=== PATIENT | male | born 1950 | race Caucasian/White ===

== ENCOUNTER 2016-11-15 10:04 | Inpatient (IN) ==
[2016-11-15] MEDS ORDERED: SODIUM CHLORIDE 0.9% 500 ML IV STA (10:17)
[2016-11-15] MEDS ORDERED: LEVOFLOXACIN 750 MG TABLET PO STA (10:17)
[2016-11-15 11:08] LABS: Basophils # 0.1 10*3/uL (0.0-0.2); Basophils % 0.6 % (0.0-0.8); Eosinophils # 0.2 10*3/uL (0.0-0.87); Eosinophils % 1.8 % (0.00-10.9); Hematocrit 33.9 VOL% (42.0-52.0); Hemoglobin 11.8 GM/DL (14.0-18.0); Immature Granulocytes % 0.5 %; Immature Granulocytes Absolute 0.05 #; Lymphocytes # 1.6 10*3/uL (1.4-4.0); Lymphocytes % 16.4 % (21.2-54.2); Mean Corpuscular HGB Conc 34.8 GM/DL (32-36); Mean Corpuscular Hemoglobin 35 PG (27-34); Mean Corpuscular Volume 101.8 FL (87-102); Mean Platelet Volume 10.4 FL (9.6-12.0); Monocytes # 1.3 10*3/uL (0.11-0.8); Monocytes % 12.9 % (1.7-12.7); Neutrophils # 6.8 10*3/uL (1.4-7.4); Neutrophils % 67.8 % (38.7-73.9); Platelet Count 177 T/CUMM (130-400); Red Blood Count 3.33 MC/CUMM (3.8-5.5); Red Cell Distribution Width 12.7 % (9.3-17.3)
[2016-11-15] MEDS ORDERED: LEVOFLOXACIN INJ 750 MG in PREMIX 1 EACH IV STA (11:15)
[2016-11-15] MEDS ORDERED: LEVOFLOXACIN INJ 150 ML IV ONE (11:15)
[2016-11-15 11:32] LABS: Calcium 7.8 MG/DL (8.5-10.1)
--- NOTE | 2016-11-15 11:32 | Order Completion Report ---
See report scanned to EMR
[2016-11-15 12:19] LABS: Apearance,Urine CLEAR (Clear); Bilirubin,Urine Negative (Negative); Blood, Urine Negative (Negative); Glucose,Urine (UA) Negative (Negative); Ketones,Urine Negative (Negative); Mucus,Urine Occasional /LPF (Occasional); Nitrite,Urine Negative (Negative); Protein,Urine Negative; RBC,Urine <1 /HPF (0-4); Squamous Epithelial Cell,Urine Occasional /HPF (0-10); Urine Color Yellow (Yellow); Urine Specific Gravity 1.013 (1.001-1.035); Urine Urobilinogen < 2.0 EU/DL (0.2-1.0)
--- NOTE | 2016-11-15 12:19 | XRay Report ---
2 view chest Indication: Shortness of breath Comparison: July 31, 2015 Findings: Cardiomediastinal contours are within normal limits post coronary artery bypass graft with sternotomy wires and midline. Lungs are clear bilaterally. . No acute osseous abnormalities. Visualized upper abdomen demonstrates no acute pathology. Impression: No acute cardiopulmonary findings PROCEDURE INTERPRETED AT [facility] DEPARTMENT OF RADIOLOGY Final Report Signed by: Elvira Tobar MD
--- NOTE | 2016-11-15 12:49 | Emergency Department Note ---
Javier Clarke Jessica J, am scribing for, and in the presence of, Kayden Chávez MD 10:20. Kyler Clarke Doug C, MD, personally performed the services described in this documentation, ascribed by Neetu Herrera in my presence, and it is both accurate and complete 249 . Arrival - Arrival Chief Complaint: Upper Respiratory Stated Complaint: chest pain, cough, congestion ED Nursing Triage Note: Pt c/o fever, cough, congestion, SOB, and chest pain x 4 days. Pt was given ABX in the clinic but is not better. Mode of Arrival: Ambulatory Limitations: No Limitations Source: Patient, RN Notes Reviewed - History of Present Illness HPI Narrative: Patient 66-year-old white male presents emergency room complaining of fever, cough and shortness of breath started 5 days ago. Patient states she has not had any sputum production. He is having some pleuritic right-sided chest pain is worse with deep breath and cough. He has not had any chills or rigors associated with this. He denies nausea, vomiting or any abdominal discomfort. Patient states he has noticed that he is short of breath when he exerts himself. He denies any hemoptysis and is not having any abdominal discomfort. Onset (ago): day(s) Consistency: constant Allergies/Adverse Reactions: Allergies Allergy/AdvReac Type Severity Reaction Status Date / Time No Known Allergies Allergy Verified 07/27/15 11:57 Home Medications: Home Medications Medication Instructions Recorded Confirmed Type Allopurinol 300 mg PO DAILY 07/27/15 07/29/15 History Enalapril Maleate 10 mg PO DAILY 07/27/15 07/29/15 History Ferrous Sulfate 325 mg PO BID 07/27/15 07/29/15 History Furosemide 20 mg PO QAM 07/27/15 07/29/15 History NIFEdipine [Nifedipine ER] 60 mg PO DAILY 07/27/15 07/29/15 History Rosuvastatin Calcium [Crestor] 5 mg PO DAILY 07/27/15 07/29/15 History Aspirin Chew Tab 81 mg PO DAILY tablet 08/01/15 Rx Fexofenadine [Caroline] 180 mg PO DAILY #30 tablet 08/01/15 Rx Magnesium Chloride [Slow Mag] 64 mg PO BID #60 tablet 08/01/15 Rx Pantoprazole Tab [Protonix Tab] 40 mg PO DAILY #30 tablet 08/01/15 Rx Potassium Chloride Cap/Tab [K Dur] 10 meq PO DAILY #30 tablet 08/01/15 Rx Amlodipine Besylate [Amlodipine 11/15/16 History Besylate] Carvedilol [Carvedilol] BID 11/15/16 11/15/16 History NIFEdipine [Nifedipine ER] 30 mg PO 11/15/16 History Review of System - Review of System 12 point system: reviewed and no additional remarkable complaints except as stated - Review of System Constitutional: Present: fever. Absent: chills, diaphoresis Eyes: Absent: vision change Head/Ears/Nose/Throat: Absent: earache Respiratory: Present: cough (congested, nonproductive cough), other (SOB). Absent: respiratory distress Cardiovascular: Absent: chest pain Gastrointestinal: Absent: abdominal pain, nausea, vomiting, diarrhea Genitourinary male: Absent: dysuria Musculoskeletal: Absent: arm pain, arthralgia, back pain, leg pain Skin: Absent: rash Neurological: Absent: headache, vertigo Psychiatric: Absent: anxiety Hematological/Lymphatic: Absent: easy bleeding, easy bruising Medical,Surgical,& Family Hx - Medical History Cardio: History of: CAD, Hypertension, [place] HEENT: History of: HEENT Problems (hard of hearing) Endocrine: History of: Dyslipidemia Rheumatology: History of;: Gout, Rheumatoid Arthritis Respiratory: History of: Obstructive Sleep Apnea Gastrointestinal: History of: GI Problems (diarrhea, vomiting) - Surgical History Cardiac Surgeries: Sugical HX of: Cardiac Catheterization (CABG 2009), Cardiac Surgery (Bypass surgery July 2009) - Family History Family History: Reports;: Family Cancer (daughter (caroital melanoma)), Family Diabetes, Family Heart Disease (aunt, grandaddy), Family Hypertension (daughters , mother), Family Stroke (mother) Denies;: Family Anesthesia Reaction, Family Psychiatric Problems - Social History Smoking Status: Never smoker Exam Vital Signs: Vital Signs Temperature 99.6 F 11/15/16 10:30 Pulse Rate 78 11/15/16 10:30 Respiratory Rate 22 11/15/16 10:30 Blood Pressure 131/79 11/15/16 10:30 O2 Sat by Pulse Oximetry 96 11/15/16 10:33 - General General appearance: alert, in no apparent distress - Head Head exam: Present: atraumatic, normocephalic - Eye Eye exam: Present: normal appearance, PERRL, EOMI - ENT ENT exam: Present: normal exam, normal oropharynx, mucous membranes moist. Absent: mucous membranes dry - Neck Neck exam: Present: normal inspection, full ROM, trachea midline - Chest Chest inspection: Present: normal inspection, symmetric chest wall rise - Respiratory Respiratory exam: Present: rales (right posterior base ). Absent: respiratory distress - Cardiovascular Cardiovascular exam: Present: regular rate, normal rhythm, normal heart sounds - Abdominal Exam Abdominal exam: Present: soft, normal bowel sounds. Absent: distention, tenderness - Extremities Exam Extremities exam: Present: normal inspection, full ROM. Absent: tenderness - Back Exam Back exam: Present: normal inspection, full ROM - Neurological Exam Neurological exam: Present: alert, oriented X3, CN II-XII intact. Absent: motor sensory deficit - Psychiatric Psychiatric exam: Present: normal affect, normal mood - Skin Skin exam: Present: warm, dry, intact, normal color Course Course Narrative: Patient's clinical presentation, laboratory and radiograph findings were discussed with Dr. Nicholas. Patient will be admitted 23 hour observation and lung scan performed. Results - Labs CBC & BMP: 11/15/16 10:56 11/15/16 10:56 Lab Results: I have reviewed the patients labs Labs: Microbiology 11/15/16 10:17 Nasal Aspirate Influenza Types A,B Antigen (RACHAEL) - Final Negative for Influenza A Ag Negative for Influenza B Ag Laboratory Tests 11/15/16 11/15/16 11/15/16 10:56 10:56 10:56 WBC 10.0 RBC 3.33 L Hgb 11.8 L Hct 33.9 L MCH 35 H Plt Count 177 Lymph % (Auto) 16.4 L [place] % (Auto) 12.9 H [place] # (Auto) 1.3 H D-Dimer, Quantitative 0.8 Sodium 136 Potassium 4.0 Chloride 99 Carbon Dioxide 28 BUN 31 H Creatinine 1.70 H Glucose 109 H Calcium 7.8 L Laboratory Tests 11/15/16 11/15/16 10:56 12:01 B-Natriuretic Peptide 336 H Urine pH 7.0 Ur Specific [place] 1.013 Urine Urobilinogen < 2.0 H Urine RBC <1 - EKG EKG results: interpreted by [facility] EKG shows: atrial fibrillation (Controlled rate) - Diagnostic Findings Procedure: Chest x-ray: report reviewed by me (No acute cardiopulmonary findings ) Disposition Clinical Impression: Pleuritic chest pain, Atrial fibrillation Case discussed with: patient Disposition: Still a Patient Condition: Stable Time of Disposition: 12:49
[2016-11-15] MEDS ORDERED: MORPHINE 2 MG/1 ML SYRINGE IV PRN (13:04)
[2016-11-15] MEDS ORDERED: NALOXONE 0.4 MG/ML VIAL IV PRN (13:04)
[2016-11-15] MEDS ORDERED: ONDANSETRON 4 MG/2 ML VIAL IV PRN (13:04)
[2016-11-15] MEDS ORDERED: NITROGLYCERIN SL 0.4 MG TABLET SL PRN (13:07)
[2016-11-15] MEDS: SODIUM CHLORIDE 0.45% 1,000 ML IV SCH (15:48)
--- NOTE | 2016-11-15 16:04 | Ultrasound Report ---
Exam: US venous doppler LE BI Indication: Pain and swelling Technique: Tobar scale Doppler with color flow with spectral broadening was performed in routine fashion of the lower extremities per routine protocol Findings: The right common femoral, superficial femoral, popliteal and proximal saphenous saphenous veins are patent with normal waveform phasicity and augmentation as well as complete vessel compressibility. There is no evidence of popliteal or Mojica's cyst. The left common femoral, superficial femoral, popliteal and proximal saphenous saphenous veins are patent with normal waveform phasicity and augmentation as well as complete vessel compressibility. There is no evidence of popliteal or Mojica's cyst. Impression: No evidence of deep venous thrombosis within bilateral lower extremity Ultrasound images were captured and stored. PROCEDURE INTERPRETED AT [facility] DEPARTMENT OF RADIOLOGY Final Report Signed by: Elvira Tobar MD
[2016-11-15] MEDS: ACETAMINOPHEN 325 MG TABLET PO PRN (18:18)
[2016-11-15] MEDS: HYDROcodone/CHLORPHENIRAMINE ER 5 ML UDCUP PO PRN (18:18)
--- NOTE | 2016-11-15 20:33 | Nuclear Medicine Report ---
VQ scan November 15, 2016 Indication: Difficulty breathing and right-sided chest pain Comparison images not available Technique: Planar imaging of the chest was performed after administration of aerosol 40 mCi of technetium 99 DTPA and 5 mCi of technetium 99 MAA intravenously Findings: There is question of single nonsegmental perfusion mismatch involving the lateral segment of the right middle lobe Impression Low probability scan for pulmonary embolism by PIOPED criteria. If strong clinical concern, CTA is the gold standard for evaluating for pulmonary embolism. PROCEDURE INTERPRETED AT [facility] DEPARTMENT OF RADIOLOGY Final Report Signed by: Elvira Tobar MD
[2016-11-15] MEDS: APIXABAN 5 MG TABLET PO SCH (21:34)
[2016-11-15] MEDS: FERROUS SULFATE 325 MG TABLET PO SCH (21:34)
[2016-11-15] MEDS: DOCUSATE SODIUM 100 MG CAPSULE PO SCH (21:34)
[2016-11-15] MEDS: MAGNESIUM CHLORIDE 64 MG TABLET PO SCH (21:34)
[2016-11-15] MEDS: METOPROLOL TARTRATE 25 MG TABLET PO SCH (21:34)
[2016-11-16] MEDS: SODIUM CHLORIDE 0.45% 1,000 ML IV SCH ×3 (01:20→22:02)
[2016-11-16 06:02] LABS: Calcium 7.9 MG/DL (8.5-10.1); Magnesium 2.2 MG/DL (1.8-2.4); Osmolality,Calculated 275.1 MOS/KG (273-304); Potassium 4.5 MMOL/L (3.5-5.1)
--- NOTE | 2016-11-16 06:43 | Order Completion Report ---
See report scanned to EMR
--- NOTE | 2016-11-16 07:35 | Family Practice History&Phys ---
Assessment and Plan (1) Pleuritic chest pain Status: Acute Assessment and plan: 11/16/2016: Lung scan and venous Dopplers reveal no evidence of DVT or PE. Patient certainly has bronchitis. Current Visit: Yes (2) Atrial fibrillation Status: Acute Assessment and plan: 11/16/2016: Patient is in atrial fibrillation with controlled rate. Cardiology will see him today and he can probably go home if they agree. Current Visit: Yes History of Present Illness Chief complaint: Chest pain History of present illness: Mr. Espinoza is a 66 year old male Patient is a 66-year-old male who presented the emergency room complaining of chest pain and shortness of breath. The pain was pleuritic in character and he had slightly elevated d-dimer. Patient states she has had a productive cough but no hemoptysis. There was concern that he could have pulmonary emboli. He was also noted that he was in atrial fibrillation with a controlled rate. He has no history of atrial fibrillation. Patient was admitted to my services and started on Eliquis. His renal function was marginal and a lung scan and venous Dopplers of the lower extremities were ordered which revealed no evidence of DVT or PE. Patient is still complaining of some chest pain and cough this morning. Cardiac isoenzymes were negative in the emergency room. Patient continues to be in atrial fibrillation. He denies any fever or chills. He was started on IV Levaquin in the emergency room and this will be continued. Cardiology has been consulted and he is a regular patient of Dr. Bridges. Patient does have a history of obstructive sleep apnea and uses his CPAP faithfully. Home Medications Medication Instructions Recorded Confirmed Type Allopurinol 300 mg PO QAM 07/27/15 11/15/16 History Enalapril Maleate 10 mg PO QAM 07/27/15 11/15/16 History Ferrous Sulfate 325 mg PO BID 07/27/15 11/15/16 History Furosemide 20 mg PO QAM 07/27/15 11/15/16 History Magnesium Chloride [Slow Mag] 64 mg PO BID #60 tablet 08/01/15 11/15/16 Rx Amlodipine Besylate [Amlodipine 5 mg PO QAM 11/15/16 11/15/16 History Besylate] Aspirin Chew Tab 81 mg PO QAM 11/15/16 11/15/16 History Atorvastatin [Lipitor] 5 mg PO MOWEFR 11/15/16 11/15/16 History Azithromycin [Azithromycin Z Pack] 250 tablet PO DAILY 11/15/16 11/15/16 History Carvedilol [Carvedilol] 3.125 mg PO BID 11/15/16 11/15/16 History Cetirizine Tab [ZyrTEC Tab] 10 mg PO DAILY 11/15/16 11/15/16 History NIFEdipine [Nifedipine ER] 30 mg PO QAM 11/15/16 11/15/16 History Omeprazole [Prilosec] 20 mg PO QAM 11/15/16 11/15/16 History Allergies Allergy/AdvReac Type Severity Reaction Status Date / Time No Known Allergies Allergy Verified 07/27/15 11:57 - Constitutional Constitutional: Present: chills, fever(s), weakness - EENT Eyes: Absent: blurry vision, loss of vision Ears: Absent: decreased hearing, ear pain Nose, mouth and throat: Present: nasal congestion. Absent: hoarseness, sinus pressure, sore throat - Cardiovascular Cardiovascular: Present: chest pain at rest, dyspnea, lightheadedness. Absent: diaphoresis, palpitations, PND - Respiratory Respiratory: Present: as per HPI, cough, dyspnea. Absent: wheezing - Gastrointestinal Gastrointestinal: Absent: abdominal pain, diarrhea, dyspepsia, dysphagia, nausea , vomiting - Genitourinary Genitourinary: Absent: dysuria, hematuria, nocturia - Musculoskeletal Musculoskeletal: Absent: back pain, joint swelling - Neurological Neurological: Absent: confusion, convulsions, focal weakness, numbness, paresthesias - Psychiatric Psychiatric: Absent: anxiety, confusion - Endocrine Endocrine: Absent: fatigue, polydipsia, polyphagia - Hematologic/Lymphatic Hematologic/Lymphatic: Absent: easy bleeding, easy bruising Medical,Surgical,& Family Hx - Medical History Cardio: History of: Cardiac Dysrhythmia, CAD, Hypertension, [place] HEENT: History of: HEENT Problems (hard of hearing) Endocrine: History of: Dyslipidemia Rheumatology: History of;: Gout, Rheumatoid Arthritis Respiratory: History of: Obstructive Sleep Apnea Gastrointestinal: History of: Diverticulitis/ Diverticulosis, GERD, Ulcerative Colitis, GI Problems (diarrhea, vomiting) - Surgical History Cardiac Surgeries: Sugical HX of: Cardiac Catheterization, Cardiac Surgery ( Bypass surgery July 2009) - Family History Family History: Reports;: Family Cancer (daughter (caroital melanoma)), Family Diabetes (AUNT), Family Heart Disease (aunt, grandaddy, BROTHER, SISTER), Family Hypertension (daughters, mother), Family Stroke (mother) Denies;: Family Anesthesia Reaction, Family Psychiatric Problems - Social History Smoking Status: Never smoker Frequency of Alcohol Use: Rarely Type of Drug Use: None Exam - Constitutional Vitals: Period Temp Pulse Resp BP Sys/[place] Pulse Ox Last 24 Hr 96.8 F-100.6 F 72-84 16-22 114-150/72-85 90-96 Exam: General: Objective patient is a well-developed white male in no acute distress. He is able give an excellent history. HEENT: Pupils equal and reactive to light. Patent nares and airway Neck: No meningismus, adenopathy, thyromegaly. There are no auscultated carotid bruits. Cardiovascular: Irregularly irregular rhythm. No murmurs or gallops. Patient's in atrial fibrillation on the monitor. Chest: Patient is noted to have scattered rhonchi throughout all lung espinoza. Abdomen: Soft nontender to palpation No masses, rebound, guarding or tenderness. Neuro: Cranial nerves intact and DTRs and strength symmetric in all extremities. Dermatologic: No evidence of abnormal lesions or masses. Musculoskeletal: There is no joint swelling or tenderness or deformity. Extremities: There is no calf swelling or tenderness. Results - Labs CBC & BMP: 11/15/16 10:56 11/16/16 04:47 Lab Results: I have reviewed the past 24 hour labs - EKG EKG shows: atrial fibrillation (With controlled rate at 72 bpm) - Diagnostic Findings Procedure: Chest x-ray: report reviewed by me (No acute abnormality seen. Repeat chest x-ray has been ordered)
[2016-11-16 08:38] LABS: Troponin I Only 0.018 NG/ML (0.00-0.045)
--- NOTE | 2016-11-16 08:53 | XRay Report ---
Chest, 2 views History is acute bronchitis Comparison 11/15/2016 The heart is enlarged with prior median sternotomy. No confluent infiltrates are seen Impression: Cardiomegaly without acute infiltrates seen PROCEDURE INTERPRETED AT [facility] DEPARTMENT OF RADIOLOGY Final Report Signed by: Dr. Lara Hudson
[2016-11-16] MEDS: LEVOFLOXACIN 500 MG TABLET PO SCH (09:32)
[2016-11-16] MEDS: DOCUSATE SODIUM 100 MG CAPSULE PO SCH ×2 (09:33→21:50)
[2016-11-16] MEDS: ROSUVASTATIN 10 MG TABLET PO SCH (09:34)
[2016-11-16] MEDS: FERROUS SULFATE 325 MG TABLET PO SCH ×2 (09:35→21:51)
[2016-11-16] MEDS: APIXABAN 5 MG TABLET PO SCH ×2 (09:35→21:51)
[2016-11-16] MEDS: FUROSEMIDE 20 MG TABLET PO SCH (09:36)
[2016-11-16] MEDS: METOPROLOL TARTRATE 25 MG TABLET PO SCH ×2 (09:37→21:51)
[2016-11-16] MEDS: PANTOPRAZOLE 40 MG TABLET PO SCH (09:38)
[2016-11-16] MEDS: MAGNESIUM CHLORIDE 64 MG TABLET PO SCH ×2 (09:39→21:51)
[2016-11-16] MEDS: ENALAPRIL 10 MG TABLET PO SCH (09:40)
[2016-11-16] MEDS: ALLOPURINOL 300 MG TABLET PO SCH (09:40)
[2016-11-16] MEDS: HYDROcodone/CHLORPHENIRAMINE ER 5 ML UDCUP PO PRN ×2 (10:14→21:53)
--- NOTE | 2016-11-16 10:49 | Cardiology Consult Note ---
Assessment and Plan - Time spent with patient Time spent with patient: Greater than 30 minutes (due to assessment, plan, and documentation) (1) Atrial fibrillation Status: Acute Assessment and plan: See plan of care listed below. Current Visit: Yes Qualifiers: Atrial fibrillation type: paroxysmal Qualified Code(s): I48.0 - Paroxysmal atrial fibrillation (2) Acute bronchitis Status: Acute Assessment and plan: See plan of care listed below. Current Visit: Yes (3) Bradycardia Status: Chronic Assessment and plan: See plan of care listed below. Current Visit: No (4) Atherosclerotic cardiovascular disease Status: Chronic Assessment and plan: See plan of care listed below. Current Visit: No (5) Iron deficiency anemia Status: Chronic Assessment and plan: See plan of care listed below. Current Visit: Yes (6) Hypertension Status: Chronic Assessment and plan: See plan of care listed below. Current Visit: Yes (7) Hypercholesterolemia Status: Chronic Assessment and plan: See plan of care listed below. Current Visit: No (8) Obstructive sleep apnea Status: Chronic Assessment and plan: See plan of care listed below. 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 Chávez Mr. Espinoza is a 66 y/o WM who has a history of atrial flutter, bradycardia, coronary artery disease, iron deficiency anemia, hypertension, hyperlipidemia, gout, obstructive sleep apnea (compliant with CPAP), GERD, chronic renal insufficiency. He is status post coronary bypass grafting 3 in 2009. Following his bypass surgery, he had some colonic bleeding and has since not been a candidate for anticoagulation. I've attempted to review his old records, but am unable to access these. Mr. Espinoza presented to the emergency room yesterday complaining of chest pain shortness of breath. His pain was pleuritic in nature and he was also noted to have an elevated d-dimer. His lung scan and venous Dopplers revealed no evidence of DVT or PE. Patient's is at the bedside reports that he has had congestion for the past 2 weeks which has progressively worsened in the past week he began running a fever. He has had a productive cough but no hemoptysis. Patient is a poor historian but his is at the bedside and helps with the history. The patient does not recall having a history of irregular heartbeat but the patient's notes that he did have trouble following a bout of salmonella several years ago. According to his clinic records, the patient has a history of atrial flutter but due to history of iron deficiency anemia and colonic bleeding 2009, he was determined to not be a candidate for chronic anticoagulation and has been placed on aspirin for stroke prevention. Upon arrival, he was noted to have WBC 10.0, neutrophil count 67.8. H&H 11.8 & 33.9. PLT count 177. Sodium 136, potassium 4.0, creatinine 1.7, osmolality 279, BNP 336, TSH 2.58, troponin negative. EKG showed atrial fibrillation with rates in the 70's. We will continue to monitor. Dr. Bridges to follow with further plan and addendum. IMPRESSION/PLAN: - ATRIAL FIBRILLATION/FLUTTER: Suspect paroxysmal, but unsure if this is chronic. Patient has been started on Metoprolol 25mg PO BID as well as Eliquis 5mg po BID. With his history of GI bleed, he may require stroke prevention with aspirin only. Will discuss with Dr. Bridges and await additional recommendations. We will continue to monitor CBC and for any signs of bleeding. If he continues on anticoagulation, he will need to have his blood counts monitored as an outpatient. - ACUTE BRONCHITIS: Patient has been started on Levaquin. He is audibly wheezing upon exam today. Will start him on some PRN breathing treatments. If his heart rate becomes elevated, we can use additional beta blockers to help keep his heart rate controlled. - HISTORY OF BRADYCARDIA: Currently tolerating beta nneka without difficulty. - CORONARY ARTERY DISEASE: He is status post coronary bypass grafting 3 in 2009 with GOTTI to LAD, SVG to RCA, and SVG to diagonal. - IRON DEFICIENCY ANEMIA: H&H stable presently. Patient denies recent bleeding issues. - HYPERTENSION: Currently well controlled. Will continue to monitor and adjust accordingly. - HYPERLIPIDEMIA: Continue lipid lowering agent. - OBSTRUCTIVE SLEEP APNEA: Continue CPAP while sleeping. CC: Kayden Chávez MD - Home Medications and Allergies Home Medications: Home Medications Medication Instructions Recorded Confirmed Type Allopurinol 300 mg PO QAM 07/27/15 11/15/16 History Enalapril Maleate 10 mg PO QAM 07/27/15 11/15/16 History Ferrous Sulfate 325 mg PO BID 07/27/15 11/15/16 History Furosemide 20 mg PO QAM 07/27/15 11/15/16 History Magnesium Chloride [Slow Mag] 64 mg PO BID #60 tablet 08/01/15 11/15/16 Rx Amlodipine Besylate [Amlodipine 5 mg PO QAM 11/15/16 11/15/16 History Besylate] Aspirin Chew Tab 81 mg PO QAM 11/15/16 11/15/16 History Atorvastatin [Lipitor] 5 mg PO MOWEFR 11/15/16 11/15/16 History Azithromycin [Azithromycin Z Pack] 250 tablet PO DAILY 11/15/16 11/15/16 History Carvedilol [Carvedilol] 3.125 mg PO BID 11/15/16 11/15/16 History Cetirizine Tab [ZyrTEC Tab] 10 mg PO DAILY 11/15/16 11/15/16 History NIFEdipine [Nifedipine ER] 30 mg PO QAM 11/15/16 11/15/16 History Omeprazole [Prilosec] 20 mg PO QAM 11/15/16 11/15/16 History Allergies/Adverse Reactions: Allergies Allergy/AdvReac Type Severity Reaction Status Date / Time No Known Allergies Allergy Verified 07/27/15 11:57 Review of systems: - Constitutional: Present: fever(s),, As per HPI. Absent: anorexia, chills, daytime sleepiness, excessive sweating, frequent falls, headache(s), increased appetite, lethargy, malaise, night sweats, stops breathing during sleep, weakness, weight gain, weight loss, fatigue. - EENT Eyes: Present: As per HPI. Absent: blurry vision, diplopia, loss of vision Ears: Present: As per HPI. Absent: decreased hearing, ear discharge, ear pain Nose, mouth and throat: Present: nasal congestion, As per HPI. Absent: dysphagia , epistaxis, headache(s), hoarseness, lip swelling, neck mass, neck pain, sinus pressure, sore throat, throat swelling, tongue swelling, vertigo - Cardiovascular: Present: chest pain at rest, dyspnea, dyspnea on exertion, as per HPI. Absent: chest pain with activity, edema, claudication, diaphoresis, radiating jaw, neck or arm pain, lightheadedness, orthopnea, palpitations, PND - Respiratory: Present: dyspnea, dyspnea on exertion, cough, wheezing, as per HPI. Absent: hemoptysis, snoring, pain on inspiration - Gastrointestinal: Present: As per HPI. Absent: abdominal pain, bloating, change in bowel habits, constipation, diarrhea, heartburn, hematemesis, hematochezia, loose stools, melena, nausea, vomiting - Genitourinary: Present: As per HPI. Absent: difficulty urinating, dysuria, flank pain, hematuria, nocturia, urinary frequency, urinary incontinence - Musculoskeletal: Present: As per HPI. Absent: arthralgias, back pain, joint swelling, limited range of motion, muscle cramps, muscle weakness, myalgias - Neurological: Present: dizziness, As per HPI. Absent: abnormal gait, abnormal speech, behavioral changes, confusion, convulsions, disequilibrium, focal weakness, frequent falls, headache(s), memory loss, paresthesias, radicular pain , syncope, tremor(s) - Psychiatric: Present: As per HPI. Absent: anxiety, confusion, depression, panic attacks - Endocrine: Present: As per HPI. Absent: cold intolerance, fatigue, heat intolerance, polydipsia, polyphagia - Hematologic/Lymphatic: Present: As per HPI. Absent: easy bleeding, easy bruising, lymphadenopathy Medical,Surgical,& Family Hx - Medical History Cardio: History of: Cardiac Dysrhythmia (atrial flutter), CAD, Hypertension, [place] HEENT: History of: HEENT Problems (hard of hearing) Endocrine: History of: Dyslipidemia Rheumatology: History of;: Gout, Rheumatoid Arthritis Respiratory: History of: Obstructive Sleep Apnea Gastrointestinal: History of: Diverticulitis/ Diverticulosis, GERD, Ulcerative Colitis, GI Problems (diarrhea, vomiting) - Surgical History Cardiac Surgeries: Sugical HX of: Cardiac Catheterization, Cardiac Surgery ( Bypass surgery July 2009) - Family History Family History: Reports;: Family Cancer (daughter (caroital melanoma)), Family Diabetes (AUNT), Family Heart Disease (aunt, grandaddy, BROTHER, SISTER), Family Hypertension (daughters, mother), Family Stroke (mother) Denies;: Family Anesthesia Reaction, Family Psychiatric Problems - Social History Smoking Status: Never smoker Frequency of Alcohol Use: Rarely Type of Drug Use: None Marital Status: Lives With:: Spouse Functional capacity: independent ambulation Physical Examination Vital Signs Temp Pulse Resp BP Pulse Ox 99.6 F 78 22 131/79 96 11/15/16 10:05 11/15/16 10:05 11/15/16 10:05 11/15/16 10:05 11/15/16 10:05 Exam: General appearance: Appears well. Pleasant and cooperative. Overweight, no acute distress. Head exam: Present: normal inspection, normocephalic, atraumatic. Absent: hematoma, laceration Eye exam: Present: EOMI. Absent: conjunctival injection, nystagmus, periorbital swelling, scleral icterus, laceration to eyelids, jaundice Pupils: Present: PERRL. Absent: constricted, dilated, fixed, irregular, unequal ENT exam: Present: normal exam, normal external ear exam, mucous membranes moist. Neck exam: Present: normal inspection, midline trachea. Absent: masses, lymphadenopathy, tenderness, thyromegaly, carotid bruit Respiratory exam: Present: diffuse expiratory wheezing. Absent: accessory muscle use, chest wall tenderness, rales, rhonchi. Cardiovascular exam: Present: Irregular rate and rhythm. Absent: gallop, JVD, rubs, murmur GI/Abdominal exam: Present: normal bowel sounds, soft. Absent: distended, firm , hernia, mass, tenderness. Extremities exam: Present: Normal Gait, No Clubbing, No Cyanosis, Upper Extr. Pulses 2+, Lower Extr. Pulses 2+, No edema. Capillary refill less than 3 seconds. Musculoskeletal: Present: No Fluid Collection, No Pain, Normal Range of Motion Back exam: Present: normal inspection. Absent: muscle spasm, vertebral tenderness Neurological exam: Present: awake, alert, oriented X3, Moves all extremities well without hemiparesis or paralysis. Grossly intact without resting or essential tremor Psychiatric exam: Present: normal affect, normal mood Skin exam: Present: normal color, warm, dry, intact. Absent: cyanosis, diaphoretic, rash, urticaria Result/EKG - Labs CBC & BMP: 11/15/16 10:56 11/16/16 04:47 Lab Results: I have reviewed the past 24 hour labs Labs: Laboratory Results - last 24 hr 11/15/16 11/15/16 11/15/16 10:56 10:56 10:56 WBC 10.0 RBC 3.33 L Hgb 11.8 L Hct 33.9 L MCV 101.8 MCH 35 H MCHC 34.8 RDW 12.7 Plt Count 177 MPV 10.4 Neut % (Auto) 67.8 Lymph % (Auto) 16.4 L [place] % (Auto) 12.9 H Eos % (Auto) 1.8 Baso % (Auto) 0.6 Neut # (Auto) 6.8 Lymph # (Auto) 1.6 [place] # (Auto) 1.3 H Eos # (Auto) 0.2 Baso # (Auto) 0.1 Immature Gran % 0.5 Nucleated RBC % 0.0 Immature Gran # 0.05 Nucleated RBCs # 0.00 Immature Plt Fraction 0.0 D-Dimer, Quantitative 0.8 Sodium 136 Potassium 4.0 Chloride 99 Carbon Dioxide 28 Anion Gap 13.0 BUN 31 H Creatinine 1.70 H GFR Calculation 53 BUN/Creatinine Ratio 18.00 Glucose 109 H Calculated Osmolality 279.0 Calcium 7.8 L Magnesium Total Creatine Kinase CK-MB (CK-2) Troponin I B-Natriuretic Peptide TSH 3rd Generation Urine Color Urine Appearance Urine pH Ur Specific [place] Urine Protein Urine Glucose (UA) Urine Ketones Urine Blood Urine Nitrate Urine Bilirubin Urine Urobilinogen Urine Leukocytes Urine RBC Ur Squamous Epith Cells Urine Mucus Ur Culture Indicated? 11/15/16 11/15/16 11/15/16 10:56 10:56 10:56 WBC RBC Hgb Hct MCV MCH MCHC RDW Plt Count MPV Neut % (Auto) Lymph % (Auto) [place] % (Auto) Eos % (Auto) Baso % (Auto) Neut # (Auto) Lymph # (Auto) [place] # (Auto) Eos # (Auto) Baso # (Auto) Immature Gran % Nucleated RBC % Immature Gran # Nucleated RBCs # Immature Plt Fraction D-Dimer, Quantitative Sodium Potassium Chloride Carbon Dioxide Anion Gap BUN Creatinine GFR Calculation BUN/Creatinine Ratio Glucose Calculated Osmolality Calcium Magnesium Total Creatine Kinase CK-MB (CK-2) Troponin I < 0.015 B-Natriuretic Peptide 336 H TSH 3rd Generation 2.580 Urine Color Urine Appearance Urine pH Ur Specific [place] Urine Protein Urine Glucose (UA) Urine Ketones Urine Blood Urine Nitrate Urine Bilirubin Urine Urobilinogen Urine Leukocytes Urine RBC Ur Squamous Epith Cells Urine Mucus Ur Culture Indicated? 11/15/16 11/16/16 11/16/16 12:01 04:47 07:54 WBC RBC Hgb Hct MCV MCH MCHC RDW Plt Count MPV Neut % (Auto) Lymph % (Auto) [place] % (Auto) Eos % (Auto) Baso % (Auto) Neut # (Auto) Lymph # (Auto) [place] # (Auto) Eos # (Auto) Baso # (Auto) Immature Gran % Nucleated RBC % Immature Gran # Nucleated RBCs # Immature Plt Fraction D-Dimer, Quantitative Sodium 135 L Potassium 4.5 Chloride 99 Carbon Dioxide 24 Anion Gap 16.5 H BUN 29 H Creatinine 1.70 H GFR Calculation 57 BUN/Creatinine Ratio 17.00 Glucose 94 Calculated Osmolality 275.1 Calcium 7.9 L Magnesium 2.2 Total Creatine Kinase 117 CK-MB (CK-2) < 1.0 Troponin I 0.018 B-Natriuretic Peptide TSH 3rd Generation Urine Color Yellow Urine Appearance Clear Urine pH 7.0 Ur Specific [place] 1.013 Urine Protein Negative Urine Glucose (UA) Negative Urine Ketones Negative Urine Blood Negative Urine Nitrate Negative Urine Bilirubin Negative Urine Urobilinogen < 2.0 H Urine Leukocytes Negative Urine RBC <1 Ur Squamous Epith Cells Occasional Urine Mucus Occasional Ur Culture Indicated? Not indicated - EKG EKG results: interpreted by me EKG shows: atrial fibrillation
[2016-11-16 11:29] LABS: Troponin I Only < 0.015 NG/ML (0.00-0.045)
[2016-11-16] MEDS: ALBUTEROL/IPRATROPIUM 3 ML NEB RESP TX PRN (12:31)
[2016-11-16 13:50] LABS: Troponin I Only < 0.015 NG/ML (0.00-0.045)
[2016-11-16 18:42] LABS: Troponin I Only < 0.015 NG/ML (0.00-0.045)
[2016-11-16] MEDS: ACETAMINOPHEN 325 MG TABLET PO PRN (21:51)
[2016-11-17 03:51] LABS: Basophils % 0.3 % (0.0-0.8); Eosinophils # 0.3 10*3/uL (0.0-0.87); Eosinophils % 3.6 % (0.00-10.9); Immature Granulocytes % 0.6 %; Immature Granulocytes Absolute 0.05 #; Lymphocytes # 1.6 10*3/uL (1.4-4.0); Lymphocytes % 18.8 % (21.2-54.2); Mean Corpuscular HGB Conc 34.4 GM/DL (32-36); Mean Corpuscular Hemoglobin 35 PG (27-34); Mean Corpuscular Volume 101.3 FL (87-102); Mean Platelet Volume 11.4 FL (9.6-12.0); Monocytes # 1.1 10*3/uL (0.11-0.8); Monocytes % 12.4 % (1.7-12.7); Neutrophils # 5.6 10*3/uL (1.4-7.4); Neutrophils % 64.3 % (38.7-73.9); Platelet Count 160 T/CUMM (130-400); Red Blood Count 3.16 MC/CUMM (3.8-5.5); Red Cell Distribution Width 12.4 % (9.3-17.3); White Blood Count 8.7 T/CUMM (4-12)
[2016-11-17 04:24] LABS: Magnesium 2.3 MG/DL (1.8-2.4); Potassium 4.3 MMOL/L (3.5-5.1)
[2016-11-17] MEDS: SODIUM CHLORIDE 0.45% 1,000 ML IV SCH (07:19)
--- NOTE | 2016-11-17 07:26 | Family Practice Progress Note ---
Family Practice - PN: Subj Interval history: Patient states he is feeling much better does not have any further chest pain. His cough is productive now. His heart rate is well controlled. Dr. Bridges saw the patient and apparently he has been on blood thinners in the past with subsequent anemia. Patient states she is feeling fine and ready to go home with all possible. I told asked him to wait Dr. Bridges sees him today Exam (Progress Note) - Constitutional Vitals: Period Temp Pulse Resp BP Sys/[place] Pulse Ox Last 24 Hr 97.3 F-102.5 F 64-88 17-20 97-142/55-77 91-98 Exam: Well-developed gentleman in no acute distress. Patient states he feels much better Cardiovascular: Heart rates irregularly regular with no murmurs or gallops. Respiratory: Patient still has some scattered rhonchi. Abdomen: Abdomen soft and nontender to palpation. Results - Labs CBC & BMP: 11/17/16 02:53 11/17/16 02:53 Lab Results: I have reviewed the past 24 hour labs - EKG EKG shows: atrial fibrillation - Diagnostic Findings Procedure: Chest x-ray: report reviewed by me (Repeat chest x-ray yesterday was unremarkable.) Assessment and Plan (1) Pleuritic chest pain Status: Acute Assessment and plan: 11/16/2016: Lung scan and venous Dopplers reveal no evidence of DVT or PE. Patient certainly has bronchitis. 11/17/2016: Patient's cough is improved and subsequently his chest pain has resolved. Current Visit: Yes (2) Atrial fibrillation Status: Acute Assessment and plan: 11/16/2016: Patient is in atrial fibrillation with controlled rate. Cardiology will see him today and he can probably go home if they agree. 11/17/2016: Patient continues with atrial fibrillation with controlled rate. Current Visit: Yes Qualifiers: Atrial fibrillation type: paroxysmal Qualified Code(s): I48.0 - Paroxysmal atrial fibrillation
--- NOTE | 2016-11-17 07:44 | Order Completion Report ---
See report scanned to EMR
[2016-11-17] MEDS: ALLOPURINOL 300 MG TABLET PO SCH (08:54)
[2016-11-17] MEDS: MAGNESIUM CHLORIDE 64 MG TABLET PO SCH (08:54)
[2016-11-17] MEDS: FUROSEMIDE 20 MG TABLET PO SCH (08:54)
[2016-11-17] MEDS: APIXABAN 5 MG TABLET PO SCH (08:54)
[2016-11-17] MEDS: FERROUS SULFATE 325 MG TABLET PO SCH (08:54)
[2016-11-17] MEDS: DOCUSATE SODIUM 100 MG CAPSULE PO SCH (08:55)
[2016-11-17] MEDS: ENALAPRIL 10 MG TABLET PO SCH (08:55)
[2016-11-17] MEDS: PANTOPRAZOLE 40 MG TABLET PO SCH (08:55)
[2016-11-17] MEDS: LEVOFLOXACIN 500 MG TABLET PO SCH (08:55)
[2016-11-17] MEDS: METOPROLOL TARTRATE 25 MG TABLET PO SCH (08:55)
[2016-11-17] MEDS: ALBUTEROL/IPRATROPIUM 3 ML NEB RESP TX PRN (09:17)
[2016-11-17] MEDS: ROSUVASTATIN 10 MG TABLET PO SCH (09:25)
--- NOTE | 2016-11-17 11:05 | Cardiology Progress Note ---
Assessment and Plan - Time spent with patient Time spent with patient: Less than 30 minutes (1) Atrial fibrillation Status: Acute Assessment and plan: See plan of care listed below. Current Visit: Yes Qualifiers: Atrial fibrillation type: paroxysmal Qualified Code(s): I48.0 - Paroxysmal atrial fibrillation (2) Acute bronchitis Status: Acute Assessment and plan: See plan of care listed below. Current Visit: Yes (3) Bradycardia Status: Chronic Assessment and plan: See plan of care listed below. Current Visit: No (4) Atherosclerotic cardiovascular disease Status: Chronic Assessment and plan: See plan of care listed below. Current Visit: No (5) Iron deficiency anemia Status: Chronic Assessment and plan: See plan of care listed below. Current Visit: Yes (6) Hypertension Status: Chronic Assessment and plan: See plan of care listed below. Current Visit: Yes (7) Hypercholesterolemia Status: Chronic Assessment and plan: See plan of care listed below. Current Visit: No (8) Obstructive sleep apnea Status: Chronic Assessment and plan: See plan of care listed below. 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 Bridges PCP: Dr. Chávez SUMMARY: Mr. Espinoza is a 66 y/o WM who presented to the emergency room on complaining of chest pain shortness of breath. He has a history of atrial flutter, bradycardia, coronary artery disease, iron deficiency anemia, hypertension, hyperlipidemia, gout, obstructive sleep apnea (compliant with CPAP ), GERD, chronic renal insufficiency. He is status post coronary bypass grafting 3 in 2009. Following his bypass surgery, he had some colonic bleeding but denies any recent bleeding issues. His pain was pleuritic in nature and he was also noted to have an elevated d-dimer. His lung scan and venous Dopplers revealed no evidence of DVT or PE. Treatment was started for acute bronchitis. EKG showed atrial fibrillation with rates in the 70's. We were consulted to see him and aid in his management. NOVEMBER 17, 2016: Mr. Espinoza is seen resting in the bed upon exam today. He is requesting to go home. We are continuing to follow him for his atrial fibrillation and history of atrial flutter. He has not had bradycardia with the current doses of metoprolol so we will continue for now. He will need to continue to monitor his HR upon discharge. He was also started on Eliquis 5mg po BID for anticoagulation. His blood counts have been stable, but he will need to continue to monitor for any signs of bleeding and have his blood counts monitored. We started him on breathing treatments PRN for his wheezing yesterday and thus far, he has tolerated this well, without episodes of tachycardia. Will further discuss with Dr. Bridges and await additional recommendations regarding discharge. REVIEW OF SYSTEMS: CARDIAC: Denies chest pain or palpitations. RESPIRATORY: Occasional wheezing and dyspnea on exertion. IMPRESSION/PLAN: - ATRIAL FIBRILLATION/FLUTTER: Suspect paroxysmal, but unsure if this is chronic. Patient has been started on Metoprolol 25mg PO BID as well as Eliquis 5mg po BID. Will discuss with Dr. Bridges and await additional recommendations. We will continue to monitor CBC and for any signs of bleeding. He will need to have his blood counts monitored as an outpatient. - ACUTE BRONCHITIS: Patient has been started on Levaquin and some PRN breathing treatments which he has tolerated well without tachycardia. - HISTORY OF BRADYCARDIA: Currently tolerating beta nneka without difficulty. - CORONARY ARTERY DISEASE: He is status post coronary bypass grafting 3 in 2009 with GOTTI to LAD, SVG to RCA, and SVG to diagonal. - IRON DEFICIENCY ANEMIA: H&H stable presently. Patient denies recent bleeding issues. - HYPERTENSION: Currently well controlled. Will continue to monitor and adjust accordingly. - HYPERLIPIDEMIA: Continue lipid lowering agent. - OBSTRUCTIVE SLEEP APNEA: Continue CPAP while sleeping. Exam (Progress Note) - Constitutional Vitals: Period Temp Pulse Resp BP Sys/[place] Pulse Ox Last 24 Hr 97.3 F-102.5 F 64-79 17-20 97-138/55-77 91-98 Exam: General appearance: Appears well. Pleasant and cooperative. Overweight, no acute distress. Head exam: Present: normal inspection, normocephalic, atraumatic. Absent: hematoma, laceration Eye exam: Present: EOMI. Absent: conjunctival injection, nystagmus, periorbital swelling, scleral icterus, laceration to eyelids, jaundice Pupils: Present: PERRL. Absent: constricted, dilated, fixed, irregular, unequal ENT exam: Present: normal exam, normal external ear exam, mucous membranes moist. Neck exam: Present: normal inspection, midline trachea. Absent: masses, lymphadenopathy, tenderness, thyromegaly, carotid bruit Respiratory exam: Present: diffuse expiratory wheezing, slightly improved from yesterday. Absent: accessory muscle use, chest wall tenderness, rales, rhonchi. Cardiovascular exam: Present: Irregular rate and rhythm. Absent: gallop, JVD, rubs, murmur GI/Abdominal exam: Present: normal bowel sounds, soft. Absent: distended, firm , hernia, mass, tenderness. Extremities exam: Present: Normal Gait, No Clubbing, No Cyanosis, Upper Extr. Pulses 2+, Lower Extr. Pulses 2+, No edema. Capillary refill less than 3 seconds. Musculoskeletal: Present: No Fluid Collection, No Pain, Normal Range of Motion Back exam: Present: normal inspection. Absent: muscle spasm, vertebral tenderness Neurological exam: Present: awake, alert, oriented X3, Moves all extremities well without hemiparesis or paralysis. Grossly intact without resting or essential tremor Psychiatric exam: Present: normal affect, normal mood Skin exam: Present: normal color, warm, dry, intact. Absent: cyanosis, diaphoretic, rash, urticaria Result/EKG - Labs CBC & BMP: 11/17/16 02:53 11/17/16 02:53 Lab Results: I have reviewed the past 24 hour labs Labs: Laboratory Results - last 24 hr 11/16/16 11/16/16 11/16/16 10:37 13:22 16:54 WBC RBC Hgb Hct MCV MCH MCHC RDW Plt Count MPV Neut % (Auto) Lymph % (Auto) [place] % (Auto) Eos % (Auto) Baso % (Auto) Neut # (Auto) Lymph # (Auto) [place] # (Auto) Eos # (Auto) Baso # (Auto) Immature Gran % Nucleated RBC % Immature Gran # Nucleated RBCs # Immature Plt Fraction Sodium Potassium Chloride Carbon Dioxide Anion Gap BUN Creatinine GFR Calculation BUN/Creatinine Ratio Glucose Calculated Osmolality Calcium Magnesium Total Creatine Kinase 126 117 112 CK-MB (CK-2) < 1.0 < 1.0 < 1.0 Troponin I < 0.015 < 0.015 < 0.015 11/17/16 11/17/16 02:53 02:53 WBC 8.7 RBC 3.16 L Hgb 11.0 L Hct 32.0 L MCV 101.3 MCH 35 H MCHC 34.4 RDW 12.4 Plt Count 160 MPV 11.4 Neut % (Auto) 64.3 Lymph % (Auto) 18.8 L [place] % (Auto) 12.4 Eos % (Auto) 3.6 Baso % (Auto) 0.3 Neut # (Auto) 5.6 Lymph # (Auto) 1.6 [place] # (Auto) 1.1 H Eos # (Auto) 0.3 Baso # (Auto) 0.0 Immature Gran % 0.6 Nucleated RBC % 0.0 Immature Gran # 0.05 Nucleated RBCs # 0.00 Immature Plt Fraction 0.0 Sodium 136 Potassium 4.3 Chloride 101 Carbon Dioxide 25 Anion Gap 14.3 BUN 32 H Creatinine 1.70 H GFR Calculation 57 BUN/Creatinine Ratio 18.00 Glucose 105 Calculated Osmolality 278.0 Calcium 8.0 L Magnesium 2.3 Total Creatine Kinase CK-MB (CK-2) Troponin I - EKG EKG results: interpreted by me EKG shows: atrial fibrillation
[2016-11-17 11:50] VITALS: BP 125/64
[2016-11-17] MEDS ORDERED: traMADol 50 MG TABLET PO PRN (12:30)
--- NOTE | 2016-11-17 13:15 | Discharge Summary ---
Hospital Course - Hospital Course Hospital Course: Patient 66 white male presented emergency room day of admission with chest pain. He was found to be in atrial fibrillation. He was admitted and placed on anticoagulant in the form of Eliquis. Patient certainly had bronchitis and had rhonchitic breath sounds scattered through both lung espinoza. Chest reveal no evidence of pneumonia. Cardiac isoenzymes revealed no evidence of cardiac ischemia. Patient's pain resolved with IV antibiotic therapy and he was feeling back to his normal on the day of discharge. Patient is return the office in 2 weeks time for repeat CBC and I will discuss with him at that time further anticoagulant therapy. Diagnosis - Discharge Diagnosis (1) Pleuritic chest pain Status: Acute (2) Atrial fibrillation Status: Acute Discharge Plan - Discharge Data Disposition: Disch To Home/Self Care Condition at Discharge: Stable Discharge Diet: advance to your usual diet Activity: resume usual activities as tolerated Hygiene: no restrictions Weight Bearing at Discharge: full weight bearing Driving: no restrictions Contact your physician if you experience:: fever over 101 - Discharge Medications New Acetaminophen Tab [Tylenol Tab] 650 mg PO Q6H PRN tablet PRN Reason: Fever > 100.4 Or Headache Levofloxacin Tab [Levaquin Tab] 500 mg PO Q24H #5 tablet Metoprolol Tartrate Tab [Lopressor Tab] 25 mg PO BID #60 tablet Nitroglycerin Sl Tab [Nitrostat] 0.4 mg SL Q5M PRN #25 tablet PRN Reason: Chest Pain Rosuvastatin [Crestor] 5 mg PO DAILY tablet Apixaban [Eliquis] 5 mg PO BID #60 tablet Continue Furosemide 20 mg PO QAM Ferrous Sulfate 325 mg PO BID Enalapril Maleate 10 mg PO QAM Allopurinol 300 mg PO QAM Magnesium Chloride [Slow Mag] 64 mg PO BID #60 tablet NIFEdipine [Nifedipine ER] 30 mg PO QAM Aspirin Chew Tab 81 mg PO QAM Omeprazole [Prilosec] 20 mg PO QAM Discontinued Carvedilol [Carvedilol] 3.125 mg PO BID Amlodipine Besylate [Amlodipine Besylate] 5 mg PO QAM Atorvastatin [Lipitor] 5 mg PO MOWEFR Azithromycin [Azithromycin Z Pack] 250 tablet PO DAILY Cetirizine Tab [ZyrTEC Tab] 10 mg PO DAILY - Follow Up or Referral Follow Up: Kayden Chávez MD [Emergency Provider] - 2 Weeks (CBC on return to clinic) - Forms/Instructions Exam - Constitutional Vitals: Period Temp Pulse Resp BP Sys/[place] Pulse Ox Last 24 Hr 97.3 F-102.5 F 69-79 17-20 97-138/55-72 91-98 Exam: Well-developed gentleman in no acute distress. Patient states he feels much better Cardiovascular: Heart rates irregularly regular with no murmurs or gallops. Respiratory: Patient still has some scattered rhonchi. Abdomen: Abdomen soft and nontender to palpation. Discharge Results Procedures and tests throughout hospitalization: Pending Orders 11/15/16 10:56 Blood Culture Stat Labs on day of discharge: Labs from last 24 hours 11/17/16 11/17/16 11/16/16 02:53 02:53 16:54 WBC 8.7 RBC 3.16 L Hgb 11.0 L Hct 32.0 L MCV 101.3 MCH 35 H MCHC 34.4 RDW 12.4 Plt Count 160 MPV 11.4 Neut % (Auto) 64.3 Lymph % (Auto) 18.8 L [place] % (Auto) 12.4 Eos % (Auto) 3.6 Baso % (Auto) 0.3 Neut # (Auto) 5.6 Lymph # (Auto) 1.6 [place] # (Auto) 1.1 H Eos # (Auto) 0.3 Baso # (Auto) 0.0 Immature Gran % 0.6 Nucleated RBC % 0.0 Immature Gran # 0.05 Nucleated RBCs # 0.00 Immature Plt Fraction 0.0 Sodium 136 Potassium 4.3 Chloride 101 Carbon Dioxide 25 Anion Gap 14.3 BUN 32 H Creatinine 1.70 H GFR Calculation 57 BUN/Creatinine Ratio 18.00 Glucose 105 Calculated Osmolality 278.0 Calcium 8.0 L Magnesium 2.3 Total Creatine Kinase 112 CK-MB (CK-2) < 1.0 Troponin I < 0.015 11/16/16 13:22 WBC RBC Hgb Hct MCV MCH MCHC RDW Plt Count MPV Neut % (Auto) Lymph % (Auto) [place] % (Auto) Eos % (Auto) Baso % (Auto) Neut # (Auto) Lymph # (Auto) [place] # (Auto) Eos # (Auto) Baso # (Auto) Immature Gran % Nucleated RBC % Immature Gran # Nucleated RBCs # Immature Plt Fraction Sodium Potassium Chloride Carbon Dioxide Anion Gap BUN Creatinine GFR Calculation BUN/Creatinine Ratio Glucose Calculated Osmolality Calcium Magnesium Total Creatine Kinase 117 CK-MB (CK-2) < 1.0 Troponin I < 0.015 Preliminary micro results at discharge 11/15/16 10:56 Blood Culture - Preliminary Blood No growth at 1 day 11/15/16 10:56 Blood Culture - Preliminary Blood No growth at 1 day Blood cultures remain negative DS: Provider Date of admission: 11/15/16 13:04 Primary care physician: Harshad Bridges MD Attending physician on admission: Kayden Chávez MD Consults: 11/15/16 13:04 Consult to Case Mgmt/Social Srvs [CONS] Routine Reason for Case Mgmt/Social Srvs: Discharge Planning Consult to Physician [CONS] Routine Comment: Consulting Provider: Cardiology - [facility] Person Notified: Dr. Orta Date Notified: 11/15/16 Time Notified: 14:47 Consult Notification Comment: Consulted Dr. Orta about new onset of AFib. No new orders recieved. Discharging clinician: Kayden Chávez MD Expected date of discharge: 11/17/16
== END 2016-11-17 14:10 | disposition home or self-care (01) | DRG 203 ==
LOC: N.ED 10:04 → N.EDINP 13:04 → N.TELES 14:06
PROVIDERS: ADMIT Family Medicine; ATTEND Family Medicine

== ENCOUNTER 2017-05-03 08:40 | Inpatient (IN) ==
[2017-05-03 09:33] LABS: Basophils % 0.8 % (0.0-0.8); Eosinophils # 0.4 10*3/uL (0.0-0.87); Eosinophils % 8.4 % (0.00-10.9); Hematocrit 22.5 VOL% (42.0-52.0); Hemoglobin 7.4 GM/DL (14.0-18.0); Immature Granulocytes % 0.4 %; Immature Granulocytes Absolute 0.02 #; Lymphocytes # 1.3 10*3/uL (1.4-4.0); Lymphocytes % 25.4 % (21.2-54.2); Mean Corpuscular HGB Conc 32.9 GM/DL (32-36); Mean Corpuscular Hemoglobin 36 PG (27-34); Mean Corpuscular Volume 109.8 FL (87-102); Mean Platelet Volume 10.6 FL (9.6-12.0); Monocytes # 0.5 10*3/uL (0.11-0.8); Monocytes % 10.5 % (1.7-12.7); Neutrophils # 2.8 10*3/uL (1.4-7.4); Neutrophils % 54.5 % (38.7-73.9); Platelet Count 199 T/CUMM (130-400); Red Blood Count 2.05 MC/CUMM (3.8-5.5); Red Cell Distribution Width 15.8 % (9.3-17.3); White Blood Count 5.1 T/CUMM (4-12)
[2017-05-03 09:38] LABS: PT Patient Result 10.4 SECS; Partial Thromboplastin Time 23.4 SECS (0-40)
[2017-05-03 09:59] LABS: Alanine Aminotransferase 43 U/L (16-61); Albumin 3.4 G/DL (3.4-5.0); Alkaline Phosphatase 53 U/L (45-117); Aspartate Amino Transferase 43 U/L (0-37); Bilirubin,Total < 0.39 MG/DL (0.2-1.0); Blood Urea Nitrogen 29 MG/DL (7-18); Calcium 7.8 MG/DL (8.5-10.1); Glucose 137 MG/DL (74-106); Osmolality,Calculated 290.1 MOS/KG (273-304); Potassium 4.5 MMOL/L (3.5-5.1); Sodium 142 MMOL/L (136-145); Troponin I Only < 0.015 NG/ML (0.00-0.045)
[2017-05-03] MEDS ORDERED: SODIUM CHLORIDE 0.9% 500 ML IV STA (10:01)
[2017-05-03] MEDS ORDERED: PANTOPRAZOLE 40 MG VIAL IV STA (10:01)
[2017-05-03] MEDS ORDERED: ONDANSETRON 4 MG/2 ML VIAL IV STA (10:01)
[2017-05-03] MEDS ORDERED: ONDANSETRON 4 MG/2 ML VIAL ONE (10:08)
[2017-05-03] MEDS ORDERED: PANTOPRAZOLE 40 MG VIAL IV ONE (10:08)
[2017-05-03] MEDS ORDERED: MORPHINE 2 MG/1 ML SYRINGE IV PRN (13:04)
[2017-05-03] MEDS ORDERED: ACETAMINOPHEN 325 MG TABLET PO PRN (13:04)
[2017-05-03] MEDS ORDERED: SODIUM CHLORIDE 0.9% 1,000 ML IV PRN (13:04)
[2017-05-03] MEDS ORDERED: ONDANSETRON 4 MG/2 ML VIAL IV PRN (13:04)
[2017-05-03] MEDS: SODIUM CHLORIDE 0.9% 1,000 ML IV SCH (13:50)
[2017-05-03] MEDS ORDERED: FUROSEMIDE 20 MG/2 ML VIAL IV ONE (17:39)
[2017-05-03] MEDS: DOCUSATE SODIUM 100 MG CAPSULE PO SCH (21:29)
[2017-05-04] MEDS: SODIUM CHLORIDE 0.9% 1,000 ML IV SCH (03:45)
[2017-05-04 04:34] LABS: Basophils # 0.1 10*3/uL (0.0-0.2); Basophils % 0.9 % (0.0-0.8); Eosinophils # 0.5 10*3/uL (0.0-0.87); Eosinophils % 7.1 % (0.00-10.9); Hematocrit 26.6 VOL% (42.0-52.0); Hemoglobin 8.6 GM/DL (14.0-18.0); Immature Granulocytes % 0.4 %; Immature Granulocytes Absolute 0.03 #; Lymphocytes # 1.5 10*3/uL (1.4-4.0); Lymphocytes % 21.8 % (21.2-54.2); Mean Corpuscular HGB Conc 32.3 GM/DL (32-36); Mean Corpuscular Hemoglobin 34 PG (27-34); Mean Corpuscular Volume 103.9 FL (87-102); Mean Platelet Volume 10.2 FL (9.6-12.0); Monocytes # 0.7 10*3/uL (0.11-0.8); Monocytes % 10.5 % (1.7-12.7); Neutrophils # 4.2 10*3/uL (1.4-7.4); Neutrophils % 59.3 % (38.7-73.9); Platelet Count 181 T/CUMM (130-400); Red Blood Count 2.56 MC/CUMM (3.8-5.5)
[2017-05-04 05:07] LABS: Albumin 3.3 G/DL (3.4-5.0); Bilirubin,Total 0.8 MG/DL (0.2-1.0); Calcium 7.8 MG/DL (8.5-10.1); Potassium 4.6 MMOL/L (3.5-5.1); Risk Ratio 4.38; Total Protein 5.8 G/DL (6.4-8.3); VLDL CHOLESTEROL 40.8 MG/DL
[2017-05-04] MEDS ORDERED: NITROGLYCERIN SL 0.4 MG TABLET SL PRN (07:45)
[2017-05-04] MEDS: DOCUSATE SODIUM 100 MG CAPSULE PO SCH ×2 (09:56→21:37)
[2017-05-04] MEDS: PANTOPRAZOLE 40 MG VIAL IV SCH (10:05)
[2017-05-04] MEDS: ENALAPRIL 10 MG TABLET PO SCH (12:19)
[2017-05-04] MEDS: MAGNESIUM CHLORIDE 64 MG TABLET PO SCH ×2 (12:19→21:37)
[2017-05-04] MEDS: FUROSEMIDE 20 MG TABLET PO SCH (12:19)
[2017-05-04] MEDS: CARVEDILOL 3.125 MG TABLET PO SCH ×2 (12:20→21:37)
[2017-05-04] MEDS: ALLOPURINOL 300 MG TABLET PO SCH (12:20)
[2017-05-04] MEDS: amLODIPine 5 MG TABLET PO SCH (12:23)
[2017-05-04] MEDS: MELATONIN 3 MG TABLET PO SCH (21:37)
[2017-05-05 07:47] LABS: Basophils # 0.1 10*3/uL (0.0-0.2); Basophils % 0.7 % (0.0-0.8); Eosinophils # 0.3 10*3/uL (0.0-0.87); Eosinophils % 4.2 % (0.00-10.9); Hematocrit 28.3 VOL% (42.0-52.0); Hemoglobin 9.1 GM/DL (14.0-18.0); Immature Granulocytes % 0.4 %; Immature Granulocytes Absolute 0.03 #; Lymphocytes # 1.2 10*3/uL (1.4-4.0); Lymphocytes % 14.4 % (21.2-54.2); Mean Corpuscular HGB Conc 32.2 GM/DL (32-36); Mean Corpuscular Hemoglobin 33 PG (27-34); Mean Corpuscular Volume 102.9 FL (87-102); Mean Platelet Volume 10.4 FL (9.6-12.0); Monocytes % 12.1 % (1.7-12.7); Neutrophils # 5.5 10*3/uL (1.4-7.4); Neutrophils % 68.2 % (38.7-73.9); Platelet Count 198 T/CUMM (130-400); Red Blood Count 2.75 MC/CUMM (3.8-5.5); Red Cell Distribution Width 17.5 % (9.3-17.3); White Blood Count 8.1 T/CUMM (4-12)
[2017-05-05] MEDS ORDERED: ATORVASTATIN 10 MG TABLET PO SCH (09:00)
[2017-05-05] MEDS: CARVEDILOL 3.125 MG TABLET PO SCH ×2 (11:14→21:50)
[2017-05-05] MEDS: ALLOPURINOL 300 MG TABLET PO SCH (11:15)
[2017-05-05] MEDS: ENALAPRIL 10 MG TABLET PO SCH (11:15)
[2017-05-05] MEDS: DOCUSATE SODIUM 100 MG CAPSULE PO SCH ×2 (11:16→21:50)
[2017-05-05] MEDS: amLODIPine 5 MG TABLET PO SCH (11:16)
[2017-05-05] MEDS: MAGNESIUM CHLORIDE 64 MG TABLET PO SCH ×2 (11:17→21:49)
[2017-05-05] MEDS: PANTOPRAZOLE 40 MG VIAL IV SCH (11:17)
[2017-05-05] MEDS: FUROSEMIDE 20 MG TABLET PO SCH (11:17)
[2017-05-05] MEDS ORDERED: BISACODYL 5 MG TABLET PO ONE (12:00)
[2017-05-05] MEDS ORDERED: POLYETHYLENE GLYCOL POWDER 255 GM BOTTLE PO ONE (13:00)
[2017-05-05] MEDS ORDERED: PROPOFOL 200 MG/20 ML VIAL IV ONE (13:33)
[2017-05-05] MEDS ORDERED: GLYCOPYRROLATE 0.4 MG/2 ML VIAL ONE (13:33)
[2017-05-05] MEDS ORDERED: LIDOCAINE 2% 5 ML VIAL ONE (13:33)
[2017-05-05] MEDS ORDERED: MAGNESIUM CITRATE 300 ML BOTTLE PO ONE (21:00)
[2017-05-05] MEDS: MELATONIN 3 MG TABLET PO SCH (21:49)
[2017-05-06 05:23] LABS: Basophils # 0.1 10*3/uL (0.0-0.2); Basophils % 0.9 % (0.0-0.8); Eosinophils # 0.5 10*3/uL (0.0-0.87); Eosinophils % 8.2 % (0.00-10.9); Hematocrit 29.6 VOL% (42.0-52.0); Hemoglobin 10.1 GM/DL (14.0-18.0); Immature Granulocytes % 0.5 %; Immature Granulocytes Absolute 0.03 #; Lymphocytes # 1.5 10*3/uL (1.4-4.0); Lymphocytes % 23.7 % (21.2-54.2); Mean Corpuscular HGB Conc 34.1 GM/DL (32-36); Mean Corpuscular Hemoglobin 34 PG (27-34); Mean Corpuscular Volume 99.7 FL (87-102); Mean Platelet Volume 10.3 FL (9.6-12.0); Monocytes # 0.9 10*3/uL (0.11-0.8); Monocytes % 14.5 % (1.7-12.7); Neutrophils # 3.3 10*3/uL (1.4-7.4); Neutrophils % 52.2 % (38.7-73.9); Platelet Count 207 T/CUMM (130-400); Red Blood Count 2.97 MC/CUMM (3.8-5.5); Red Cell Distribution Width 16.7 % (9.3-17.3); White Blood Count 6.3 T/CUMM (4-12)
[2017-05-06 06:07] LABS: Calcium 8.5 MG/DL (8.5-10.1); Osmolality,Calculated 280.5 MOS/KG (273-304); Potassium 4.6 MMOL/L (3.5-5.1)
[2017-05-06] MEDS ORDERED: FERROUS SULFATE 325 MG TABLET PO SCH (09:00)
[2017-05-06] MEDS: DOCUSATE SODIUM 100 MG CAPSULE PO SCH (11:59)
[2017-05-06 12:00] VITALS: BP 106/75
[2017-05-06] MEDS: FUROSEMIDE 20 MG TABLET PO SCH (12:00)
[2017-05-06] MEDS: MAGNESIUM CHLORIDE 64 MG TABLET PO SCH (12:00)
[2017-05-06] MEDS: amLODIPine 5 MG TABLET PO SCH (12:00)
[2017-05-06] MEDS: CARVEDILOL 3.125 MG TABLET PO SCH (12:01)
[2017-05-06] MEDS: ALLOPURINOL 300 MG TABLET PO SCH (12:01)
[2017-05-06] MEDS: ENALAPRIL 10 MG TABLET PO SCH (12:01)
[2017-05-06] MEDS: PANTOPRAZOLE 40 MG VIAL IV SCH (12:02)
[2017-05-07] MEDS ORDERED: PROPOFOL 200 MG/20 ML VIAL IV ONE (10:00)
[2017-05-07] MEDS ORDERED: LIDOCAINE 2% 5 ML VIAL ONE (10:00)
== END 2017-05-06 12:35 | disposition home or self-care (01) | DRG 378 ==
LOC: N.ED 08:40 → N.EDINP 11:06 → N.TELEN 16:27
PROVIDERS: ADMIT Family Medicine; ATTEND Family Medicine

== ENCOUNTER 2020-08-30 17:19 | Inpatient (IN) ==
[2020-08-30] MEDS ORDERED: SODIUM CHLORIDE 0.9% 1,000 ML IV STA (18:53)
[2020-08-30 19:21] LABS: Basophils # 0.1 10*3/uL (0.0-0.2); Basophils % 0.6 % (0.0-0.8); Eosinophils % 0.4 % (0.00-10.9); Hematocrit 33.5 VOL% (42.0-52.0); Hemoglobin 11.7 GM/DL (14.0-18.0); Immature Granulocytes % 0.3 %; Immature Granulocytes Absolute 0.03 #; Lymphocytes % 11.3 % (21.2-54.2); Mean Corpuscular HGB Conc 34.9 GM/DL (32-36); Mean Corpuscular Volume 97.7 FL (87-102); Mean Platelet Volume 10.7 FL (9.6-12.0); Monocytes % 10.7 % (1.7-12.7); Neutrophils % 76.7 % (38.7-73.9); Platelet Count 166 T/CUMM (130-400); Red Blood Count 3.43 MC/CUMM (3.8-5.5); Red Cell Distribution Width 12.1 % (9.3-17.3); White Blood Count 9.1 T/CUMM (4-12)
[2020-08-30 19:46] LABS: Albumin 3.5 G/DL (3.4-5.0); Bilirubin,Total 0.8 MG/DL (0.20-1.00); Calcium 8.2 MG/DL (8.5-10.1); Osmolality,Calculated 283.7 MOS/KG (273-304); Potassium 3.6 MMOL/L (3.5-5.1); Total Protein 6.2 G/DL (6.4-8.2)
[2020-08-30] MEDS ORDERED: LEVOFLOXACIN INJ 500 MG/100 ML PREMIX IV STA (20:28)
[2020-08-30 20:35] LABS: Bilirubin,Urine Negative (Negative); Blood, Urine Negative (Negative); Glucose,Urine (UA) Negative (Negative); Ketones,Urine Negative (Negative); Nitrite,Urine Negative (Negative); Protein,Urine >=500 MG/DL; RBC,Urine 2 /HPF (0-4); Urine Appearance CLEAR (Clear); Urine Color Yellow (Yellow); Urine Specific Gravity 1.017 (1.001-1.035); Urine Urobilinogen < 2.0 EU/DL (0.2-1.0)
[2020-08-30] MEDS ORDERED: ONDANSETRON 4 MG/2 ML VIAL IV PRN (20:38)
[2020-08-30] MEDS ORDERED: LEVOFLOXACIN INJ 500 MG/100 ML PREMIX IV SCH (21:00)
[2020-08-30] MEDS: SODIUM CHLORIDE 0.9% 1,000 ML IV SCH (23:28)
[2020-08-30] MEDS: minoxidiL 2.5 MG TABLET PO SCH (23:28)
[2020-08-31 05:18] LABS: Basophils # 0.1 10*3/uL (0.0-0.2); Basophils % 0.6 % (0.0-0.8); Eosinophils # 0.1 10*3/uL (0.0-0.87); Eosinophils % 1.3 % (0.00-10.9); Hematocrit 34.5 VOL% (42.0-52.0); Hemoglobin 11.8 GM/DL (14.0-18.0); Immature Granulocytes % 0.4 %; Immature Granulocytes Absolute 0.04 #; Lymphocytes # 1.4 10*3/uL (1.4-4.0); Lymphocytes % 15.8 % (21.2-54.2); Mean Corpuscular HGB Conc 34.2 GM/DL (32-36); Mean Platelet Volume 11.5 FL (9.6-12.0); Monocytes % 12.1 % (1.7-12.7); Neutrophils % 69.8 % (38.7-73.9); Platelet Count 160 T/CUMM (130-400); Red Blood Count 3.45 MC/CUMM (3.8-5.5); Red Cell Distribution Width 12.2 % (9.3-17.3); White Blood Count 9.1 T/CUMM (4-12)
[2020-08-31 05:49] LABS: Albumin 3.2 G/DL (3.4-5.0); Bilirubin,Total 0.8 MG/DL (0.20-1.00); Calcium 8.6 MG/DL (8.5-10.1); Osmolality,Calculated 281.5 MOS/KG (273-304); Potassium 3.6 MMOL/L (3.5-5.1); Total Protein 6.7 G/DL (6.4-8.2)
[2020-08-31] MEDS: minoxidiL 2.5 MG TABLET PO SCH ×3 (08:29→20:17)
[2020-08-31] MEDS: PANTOPRAZOLE 40 MG TABLET PO SCH ×2 (08:29→08:34)
[2020-08-31] MEDS: amLODIPine 5 MG TABLET PO SCH ×2 (08:29→08:34)
[2020-08-31] MEDS: lisinopriL 20 MG TABLET PO SCH ×2 (08:29→08:34)
[2020-08-31] MEDS: SODIUM CHLORIDE 0.9% 1,000 ML IV SCH ×3 (08:30→20:09)
[2020-08-31] MEDS: FUROSEMIDE 20 MG TABLET PO SCH ×2 (08:30→08:33)
[2020-08-31] MEDS ORDERED: NITROGLYCERIN SL 0.4 MG TABLET SL PRN (10:42)
[2020-08-31] MEDS: ACETAMINOPHEN 325 MG TABLET PO PRN ×2 (11:35→20:43)
[2020-08-31] MEDS: allopurinoL 100 MG TABLET PO SCH (11:35)
[2020-08-31] MEDS: IBUPROFEN 600 MG TABLET PO PRN (13:12)
[2020-08-31] MEDS: MUPIROCIN 2% OINT 22 GM TUBE TOP SCH ×2 (16:12→20:28)
[2020-08-31] MEDS: MELATONIN 3 MG TABLET PO SCH (20:16)
[2020-08-31] MEDS: MAGNESIUM CHLORIDE 64 MG TABLET PO SCH (20:16)
[2020-08-31] MEDS: LEVOFLOXACIN INJ 500 MG/100 ML PREMIX IV SCH (20:17)
[2020-08-31] MEDS ORDERED: minoxidiL 2.5 MG TABLET PO SCH (21:00)
[2020-09-01] MEDS: IBUPROFEN 600 MG TABLET PO PRN ×2 (04:26→12:32)
[2020-09-01] MEDS: FUROSEMIDE 20 MG TABLET PO SCH ×2 (08:13→08:22)
[2020-09-01] MEDS: CYANOCOBALAMIN 500 MCG TABLET PO SCH ×2 (08:14→08:24)
[2020-09-01] MEDS: PANTOPRAZOLE 40 MG TABLET PO SCH ×2 (08:14→08:23)
[2020-09-01] MEDS: minoxidiL 2.5 MG TABLET PO SCH ×3 (08:14→21:17)
[2020-09-01] MEDS: MAGNESIUM CHLORIDE 64 MG TABLET PO SCH ×3 (08:14→21:17)
[2020-09-01] MEDS: ASPIRIN EC 325 MG TABLET PO SCH ×2 (08:14→08:21)
[2020-09-01] MEDS: LORATADINE 10 MG TABLET PO SCH ×2 (08:15→08:22)
[2020-09-01] MEDS: allopurinoL 100 MG TABLET PO SCH ×2 (08:15→08:24)
[2020-09-01] MEDS: MUPIROCIN 2% OINT 22 GM TUBE TOP SCH ×3 (08:15→21:30)
[2020-09-01] MEDS: lisinopriL 20 MG TABLET PO SCH ×3 (08:15→08:23)
[2020-09-01] MEDS: amLODIPine 5 MG TABLET PO SCH ×2 (08:15→08:22)
[2020-09-01] MEDS ORDERED: MAGNESIUM HYDROXIDE SUSP 30 ML UDCUP PO ONE (15:14)
[2020-09-01] MEDS: ACETAMINOPHEN 325 MG TABLET PO PRN (15:35)
[2020-09-01] MEDS: LEVOFLOXACIN INJ 500 MG/100 ML PREMIX IV SCH (21:17)
[2020-09-01] MEDS: MELATONIN 3 MG TABLET PO SCH (21:17)
[2020-09-02 06:22] LABS: Basophils % 0.4 % (0.0-0.8); Eosinophils # 0.4 10*3/uL (0.0-0.87); Eosinophils % 5.7 % (0.00-10.9); Hematocrit 31.4 VOL% (42.0-52.0); Hemoglobin 10.6 GM/DL (14.0-18.0); Immature Granulocytes % 0.4 %; Immature Granulocytes Absolute 0.03 #; Lymphocytes # 0.9 10*3/uL (1.4-4.0); Lymphocytes % 12.1 % (21.2-54.2); Mean Corpuscular HGB Conc 33.8 GM/DL (32-36); Mean Corpuscular Volume 98.4 FL (87-102); Mean Platelet Volume 10.9 FL (9.6-12.0); Monocytes % 8.3 % (1.7-12.7); Neutrophils % 73.1 % (38.7-73.9); Platelet Count 148 T/CUMM (130-400); Red Blood Count 3.19 MC/CUMM (3.8-5.5); Red Cell Distribution Width 12.5 % (9.3-17.3); White Blood Count 7.4 T/CUMM (4-12)
[2020-09-02 06:49] LABS: Calcium 8.5 MG/DL (8.5-10.1); Osmolality,Calculated 286.4 MOS/KG (273-304); Potassium 3.7 MMOL/L (3.5-5.1)
[2020-09-02] MEDS: ASPIRIN EC 325 MG TABLET PO SCH (10:05)
[2020-09-02] MEDS: LORATADINE 10 MG TABLET PO SCH (10:06)
[2020-09-02] MEDS: MUPIROCIN 2% OINT 22 GM TUBE TOP SCH ×2 (10:06→20:39)
[2020-09-02] MEDS: minoxidiL 2.5 MG TABLET PO SCH ×2 (10:06→20:35)
[2020-09-02] MEDS: FUROSEMIDE 20 MG TABLET PO SCH (10:06)
[2020-09-02] MEDS: lisinopriL 20 MG TABLET PO SCH ×2 (10:07)
[2020-09-02] MEDS: PANTOPRAZOLE 40 MG TABLET PO SCH (10:07)
[2020-09-02] MEDS: MAGNESIUM CHLORIDE 64 MG TABLET PO SCH ×2 (10:07→20:35)
[2020-09-02] MEDS: amLODIPine 5 MG TABLET PO SCH (10:07)
[2020-09-02] MEDS: CYANOCOBALAMIN 500 MCG TABLET PO SCH (10:08)
[2020-09-02] MEDS: allopurinoL 100 MG TABLET PO SCH (10:08)
[2020-09-02] MEDS: cefTRIAXone 1,000 MG in SODIUM CHLORIDE 0.9% 100 ML IV SCH (10:15)
[2020-09-02] MEDS ORDERED: ATORVASTATIN 10 MG TABLET PO SCH (10:42)
[2020-09-02] MEDS: IBUPROFEN 600 MG TABLET PO PRN (12:54)
[2020-09-02] MEDS: LEVOFLOXACIN INJ 500 MG/100 ML PREMIX IV SCH (20:35)
[2020-09-02] MEDS: MELATONIN 3 MG TABLET PO SCH (20:35)
[2020-09-03] MEDS ORDERED: ENOXAPARIN 40 MG/0.4 ML SYRINGE SUBCUT SCH (08:00)
[2020-09-03] MEDS: MAGNESIUM CHLORIDE 64 MG TABLET PO SCH ×2 (08:51→20:34)
[2020-09-03] MEDS: CYANOCOBALAMIN 500 MCG TABLET PO SCH (08:51)
[2020-09-03] MEDS: ASPIRIN EC 325 MG TABLET PO SCH (08:51)
[2020-09-03] MEDS: lisinopriL 20 MG TABLET PO SCH (08:51)
[2020-09-03] MEDS: amLODIPine 5 MG TABLET PO SCH (08:51)
[2020-09-03] MEDS: allopurinoL 100 MG TABLET PO SCH (08:51)
[2020-09-03] MEDS: minoxidiL 2.5 MG TABLET PO SCH ×2 (08:51→20:34)
[2020-09-03] MEDS: PANTOPRAZOLE 40 MG TABLET PO SCH (08:51)
[2020-09-03] MEDS: LORATADINE 10 MG TABLET PO SCH (08:51)
[2020-09-03] MEDS: FUROSEMIDE 20 MG TABLET PO SCH (08:51)
[2020-09-03] MEDS: cefTRIAXone 1,000 MG in SODIUM CHLORIDE 0.9% 100 ML IV SCH (09:50)
[2020-09-03] MEDS: MUPIROCIN 2% OINT 22 GM TUBE TOP SCH ×2 (09:50→20:37)
[2020-09-03] MEDS ORDERED: BISACODYL 5 MG TABLET PO PRN (14:59)
[2020-09-03] MEDS ORDERED: ENOXAPARIN 30 MG/0.3 ML SYRINGE ONE (19:18)
[2020-09-03] MEDS: MELATONIN 3 MG TABLET PO SCH (20:33)
[2020-09-03] MEDS: LEVOFLOXACIN INJ 500 MG/100 ML PREMIX IV SCH (20:34)
[2020-09-03] MEDS ORDERED: ENOXAPARIN 30 MG/0.3 ML SYRINGE SUBCUT SCH (21:00)
[2020-09-04 08:08] VITALS: BP 173/73
[2020-09-04] MEDS: minoxidiL 2.5 MG TABLET PO SCH (09:10)
[2020-09-04] MEDS: CYANOCOBALAMIN 500 MCG TABLET PO SCH (09:10)
[2020-09-04] MEDS: MAGNESIUM CHLORIDE 64 MG TABLET PO SCH (09:10)
[2020-09-04] MEDS: amLODIPine 5 MG TABLET PO SCH (09:10)
[2020-09-04] MEDS: PANTOPRAZOLE 40 MG TABLET PO SCH (09:10)
[2020-09-04] MEDS: lisinopriL 20 MG TABLET PO SCH (09:10)
[2020-09-04] MEDS: LORATADINE 10 MG TABLET PO SCH (09:10)
[2020-09-04] MEDS: ASPIRIN EC 325 MG TABLET PO SCH (09:10)
[2020-09-04] MEDS: FUROSEMIDE 20 MG TABLET PO SCH (09:11)
[2020-09-04] MEDS: MUPIROCIN 2% OINT 22 GM TUBE TOP SCH (09:11)
[2020-09-04] MEDS: allopurinoL 100 MG TABLET PO SCH (09:11)
[2020-09-04] MEDS: cefTRIAXone 1,000 MG in SODIUM CHLORIDE 0.9% 100 ML IV SCH (09:11)
== END 2020-09-04 09:50 | disposition home or self-care (01) | DRG 728 ==
LOC: N.ED 17:19 → N.EDINP 20:36 → N.5E 21:21
PROVIDERS: ADMIT Family Medicine; ATTEND Family Medicine